=== PATIENT | female | born 1945 | race Caucasian/White ===

== ENCOUNTER 2021-10-08 08:57 | Day surgery (SDC) | payer MEDICARE ==
[~2021-10-08 08:57] MED LIST: Lactated Ringers 1,000 ML IV SCH; cefOXitin 2 GM in Premix Bag 1 BAG IV ONE
[2021-10-08] MEDS ORDERED: Lidocaine 2% 5 ML SDV ONE (10:02)
[2021-10-08] MEDS ORDERED: Propofol 200 MG/20 ML SDV ONE ×2 (10:02→11:27)
[2021-10-08] MEDS ORDERED: fentaNYL 100 MCG/2 ML SDV ONE (10:02)
[2021-10-08] MEDS ORDERED: cefOXitin 100 ML ONE (10:55)
[2021-10-08] MEDS ORDERED: Lactated Ringers 1,000 ML IV SCH (12:00)
== END 2021-10-08 12:52 | disposition home or self-care (01) ==
LOC: MW.SDS 08:57
PROVIDERS: ATTEND Surgery
DX: K29.50 Unspecified chronic gastritis without bleeding (principal); K20.90 Esophagitis, unspecified without bleeding; F41.9 Anxiety disorder, unspecified; F32.A Depression, unspecified; E78.00 Pure hypercholesterolemia, unspecified; E03.9 Hypothyroidism, unspecified; G47.33 Obstructive sleep apnea (adult) (pediatric); Z88.8 Allergy status to other drugs, medicaments and biological substances; Z79.890 Hormone replacement therapy; Z98.890 Other specified postprocedural states; Z87.891 Personal history of nicotine dependence; Z79.82 Long term (current) use of aspirin; Z79.899 Other long term (current) drug therapy
CPT/HCPCS: 43239; J0694; J2704; J3010; J7120; 00813; 99100